=== PATIENT | male | born 1980 | race African-American/Black ===

== ENCOUNTER 2018-05-10 20:19 | Emergency (ER) | payer MEDICAID ==
[~2018-05-10] VITALS: Ht 167.6 cm; Wt 81.8 kg
[2018-05-10 20:36] VITALS: Ht 167.6 cm; Wt 81.8 kg
[2018-05-10] MEDS ORDERED: NAPROSYN500 MG PO (22:05)
[2018-05-11 00:10] VITALS: BP 156/105
== END 2018-05-11 00:01 | disposition home or self-care (01) ==
LOC: D.ER 20:19
DX: M62.838 Other muscle spasm (principal); F07.81 Postconcussional syndrome; R51 Headache; I10 Essential (primary) hypertension; F17.200 Nicotine dependence, unspecified, uncomplicated; V43.52XA Car driver injured in collision with other type car in traffic accident, initial encounter; Y93.89 Activity, other specified; Y92.410 Unspecified street and highway as the place of occurrence of the external cause

== ENCOUNTER 2019-05-14 09:41 | Emergency (ER) | payer MEDICAID ==
[~2019-05-14] VITALS: Ht 167.6 cm; Wt 68.2 kg
[~2019-05-14 09:41] MED LIST: NAPROSYN500 MG PO
[2019-05-14 09:43] VITALS: Ht 167.6 cm; Wt 68.2 kg
[2019-05-14] MEDS ORDERED: TORADOL10 MG PO (10:58)
[2019-05-14] MEDS ORDERED: SKELAXIN800 MG PO (10:58)
[2019-05-14 12:29] VITALS: BP 168/100
== END 2019-05-14 12:03 | disposition home or self-care (01) ==
LOC: D.ER 09:41
DX: S33.5XXA Sprain of ligaments of lumbar spine, initial encounter (principal); V49.40XA Driver injured in collision with unspecified motor vehicles in traffic accident, initial encounter; Y93.9 Activity, unspecified; Y92.9 Unspecified place or not applicable; T14.8XXA Other injury of unspecified body region, initial encounter; I10 Essential (primary) hypertension; Z72.0 Tobacco use